=== PATIENT | male | born 1970 ===

== ENCOUNTER 2018-12-31 01:27 | Emergency (ER) | payer MEDICAID ==
[2018-12-31 01:41] VITALS: RESP 16
--- NOTE | 2018-12-31 02:59 | ED PDOC ---
HPI: Back Time Seen by Provider: 12/31/18 01:50 Chief Complaint (Nursing): Back Pain Chief Complaint (Provider): Back Pain History Per: Patient, Help Desk Intern (Certified clinical technician collar tacker: Parviz Edwarsd) History/Exam Limitations: no limitations Onset/Duration Of Symptoms: Days (x3) Additional Complaint(s): 48 years old male with history of hernia discs presents to ER for evaluation of back pain onset 3 days ago. Patient reports pain is better with standing and worse with sitting. He states pain radiates down his left leg and groin. He denies incontinence of stool or urine, difficulty passing stool or urine and taking any medications prior to arrival. PMD: Cannot recall Past Medical History Reviewed: Historical Data, Nursing Documentation, Vital Signs Vital Signs: Last Vital Signs Temp 98.4 F 12/31/18 01:38 Pulse 71 12/31/18 01:38 Resp 16 12/31/18 01:38 BP 121/78 12/31/18 01:38 Pulse Ox 98 12/31/18 01:38 Primary Care Provider: DoctorRadha - Medical History Other PMH: Hernia Discs - Surgical History Surgical History: No Surg Hx - Family History Family History: States: Unknown Family Hx - Social History Current smoker - smoking cessation education provided: No Alcohol: None Drugs: Denies - Home Medications Home Medications: Ambulatory Orders Medication Instructions Recorded Cyclobenzaprine [Cyclobenzaprine 10 mg PO BID #15 tab 12/31/18 HCl] Ibuprofen [Motrin Tab] 600 mg PO Q6 #30 tab 12/31/18 Lidocaine 1 each TP DAILY #10 adh..patch 12/31/18 - Allergies Allergies/Adverse Reactions: Allergies Allergy/AdvReac Type Severity Reaction Status Date / Time No Known Allergies Allergy Verified 12/31/18 01:41 Review of Systems ROS Statement: Except As Marked, All Systems Reviewed And Found Negative Genitourinary Male: Negative for: Incontinence (of stools or urine) Musculoskeletal: Positive for: Back Pain, Leg Pain (Left), Other (Groin pain) Physical Exam - Reviewed Nursing Documentation Reviewed: Yes Vital Signs Reviewed: Yes - Physical Exam Appears: Positive for: Well, No Acute Distress Head Exam: Positive for: ATRAUMATIC, NORMOCEPHALIC Male Genital Exam: Positive for: other (Normal testicular exam. Dimensional Engineer poultry service technician Parviz Edwards) Back: Positive for: Normal Inspection, Other (Patient refusing to sit at this time). Negative for: L CVA Tenderness, R CVA Tenderness Extremity: Positive for: Normal ROM. Negative for: Pedal Edema, Swelling Neurological/Psych: Positive for: Awake, Alert, Oriented (x3) - ECG O2 Sat by Pulse Oximetry: 98 (RA) Pulse Ox Interpretation: Normal Medical Decision Making Medical Decision Making: Time: 0 A/P: muscular skeletal back pain vs sciatica --Not concerned for AAA, cauda equina syndrome or other serious pathology at this time 0400 --PAtient still having pain, morphine ordered 0430 --PAtient improving, sitting down, girlfriend would like to take him home --Advised him to followup with PMD in 1 - 2 days --Well appearing upon discharge Scribe Attestation: Documented by Mireya Jeffrey acting as a scribe for Preston Cowart MD. Provider Scribe Attestation: All medical record entries made by the Scribe were at my direction and personally dictated by me. I have reviewed the chart and agree that the record accurately reflects my personal performance of the history, physical exam, medical decision making, and the department course for this patient. I have also personally directed, reviewed, and agree with the discharge instructions and disposition. Disposition - Clinical Impression Clinical Impression: Low back pain - Disposition Referrals: Olimpia Villarreal MD [Family Provider] - Disposition: Routine/Home Disposition Time: 04:30 Condition: IMPROVED Prescriptions: Cyclobenzaprine [Cyclobenzaprine HCl] 10 mg PO BID #15 tab Ibuprofen [Motrin Tab] 600 mg PO Q6 #30 tab Lidocaine 1 each TP DAILY #10 adh..patch Instructions: Low Back Pain in Adults Forms: [employer] (Thai) Print Language: ALBANIAN
[2018-12-31] MEDS ORDERED: Morphine 4 MG/ML VIAL IM STA (04:01)
[2018-12-31] MEDS ORDERED: Morphine 4 MG/ML VIAL ONE (04:03)
[2018-12-31 04:56] VITALS: BP 132/72; PULSE 68; TEMP 98
[2018-12-31 05:39] VITALS: O2SAT 98
--- NOTE | 2018-12-31 08:38 | RAD ---
Date of service: 12/31/2018 PROCEDURE: Radiographs of the Lumbar Spine. HISTORY: back pain COMPARISON: No prior. TECHNIQUE: 5 views obtained. FINDINGS: BONES: There is a E limited grade 1 spondylolisthesis at L3-4 with L3 slightly anterior L4, potentially on the basis of spondylolysis though this is not definitive. Follow-up bilateral oblique radiographs or cross-sectional imaging is advised for added characterization here. The lumbar curvature is straightened. No vertebral body fracture seen throughout the lumbar spine although mild anterior wedging at the T11 and possibly T10 and T10 levels may indicate thoracic spine fractures though quite limited if present. Age of fracture is indeterminate. MRI can intermittent acute versus chronic time frame of these likely fractures. DISC SPACES: Marked disc height loss seen at L4-5 with accompanying endplate degenerative changes and osteophyte development. Remaining intervertebral disc spaces are not significantly narrowed. OTHER FINDINGS: None. IMPRESSION: Straightened lumbar curvature with limited grade 1 spondylolisthesis suggested at L3-4 where there are accompanying advanced degenerative disc changes also present. Consider added cross-sectional imaging for evaluation of potential spondylolysis. No lumbar spine compression fracture evident. T11 and T10 vertebral body appearing slightly anteriorly wedged in may indicate mild fractures of indeterminate age. MRI can determine acute versus chronic time frame.
== END 2018-12-31 04:56 | disposition home or self-care (01) ==
LOC: H.ER 01:27
DX: M54.5 Low back pain (principal)
CPT/HCPCS: 72114; 96372; 99283; J1885; J2270